=== PATIENT | female | born 1995 | race African-American/Black ===

== ENCOUNTER 2019-11-12 16:01 | Emergency (ER) | payer SELFPAY ==
[~2019-11-12] VITALS: Ht 162.6 cm; Wt 63.5 kg
[2019-11-12 16:09] VITALS: BP 118/57
--- NOTE | 2019-11-12 16:12 | NUR ---
SENIA AHUMADA AT BEDSIDE FOR EVAL.
--- NOTE | 2019-11-12 16:29 | NUR ---
Patient discharged to home in stable condition. Written and verbal after care instructions given. Patient verbalizes understanding of instruction.
== END 2019-11-12 16:31 | disposition home or self-care (01) ==
LOC: ER 16:05
DX: B35.3 Tinea pedis (principal)